=== PATIENT | female | born 1975 | race Two or more races ===

== ENCOUNTER 2023-02-18 21:57 | Emergency (ER) | payer OTHER ==
[~2023-02-18] VITALS: Ht 160 cm; Wt 72.6 kg
[2023-02-18 23:31] VITALS: BP 98/67; TEMP 98.1; O2SAT 98
[2023-02-18] MEDS ORDERED: PERM60CR4 TP (23:35)
== END 2023-02-18 23:44 | disposition home or self-care (01) ==
LOC: ER 21:59
DX: B86 Scabies (principal)

== ENCOUNTER 2023-07-01 07:22 | Inpatient (IN) | payer OTHER ==
[~2023-07-01] VITALS: Ht 154.9 cm; Wt 67.1 kg
[~2023-07-01 07:22] MED LIST: PERM60CR4 TP
[2023-07-01 08:52] LABS: BASOPHILS % (AUTO) 0.3 % (0.0-2.0); EOSINOPHILS # (AUTO) 0.2 K/uL (0.0-0.7); EOSINOPHILS % (AUTO) 3.6 % (0.0-6.0); HEMATOCRIT 25 % (33-45); HEMOGLOBIN 8.2 g/dL (11.5-14.8); LYMPHOCYTES # (AUTO) 2.4 K/uL (0.8-4.8); LYMPHOCYTES % (AUTO) 39.7 % (20.0-44.0); MEAN CORPUSCULAR HEMOGLOBIN 27 PG (26.0-33.0); MEAN CORPUSCULAR HGB CONC 32 g/dl (31.0-36.0); MEAN CORPUSCULAR VOLUME 83 fL (82-100); MONOCYTES # (AUTO) 0.3 K/uL (0.1-1.30); MONOCYTES % (AUTO) 4.6 % (2.0-12.0); NEUTROPHILS # (AUTO) 3.1 K/uL (1.8-8.9); NEUTROPHILS % (AUTO) 51.8 % (43.0-81.0); PLATELET COUNT (AUTO) 534 K/uL (150-450); RED BLOOD CELL COUNT(AUTO) 3.03 MIL/uL (4.0-5.2); RED CELL DISTRIBUTION WIDTH 15.8 % (11.5-15.0)
[2023-07-01 08:59] LABS: CALCIUM, SERUM 8.4 mg/dL (8.5-10.1); CARBON DIOXIDE 23 mmol/L (21-32); CHLORIDE 104 mmol/L (98-107); CREATININE 0.8 mg/dL (0.6-1.3); GLUCOSE 95 mg/dL (74-106); POTASSIUM 3.4 mmol/L (3.5-5.1); SODIUM SERUM 137 mmol/L (136-145); UREA NITROGEN, BLOOD 19 mg/dL (7-18)
[2023-07-01 09:05] LABS: ALANINE AMINOTRANSFERASE 24 U/L (12-78); ALBUMIN 3.5 g/dL (3.4-5.0); ALKALINE PHOSPHATASE 108 U/L (46-116); ASPARTATE AMINOTRANSFERASE 13 U/L (15-37); BILIRUBIN,DIRECT 0.1 mg/dL (0.0-0.2); BILIRUBIN,TOTAL 0.2 mg/dL (0.2-1.0); TOTAL PROTEIN, SERUM 7.8 g/dL (6.4-8.2)
[2023-07-01] MEDS ORDERED: SENN-261 PO (09:37)
[2023-07-01] MEDS ORDERED: ACET-2605 PO (09:37)
[2023-07-01] MEDS ORDERED: FERR325T24 PO (09:37)
[2023-07-01] MEDS ORDERED: LEVO88TA5 PO (09:37)
[2023-07-01] MEDS ORDERED: [UNRECOGNIZED DRUG - CODE] PO (09:37)
[2023-07-01] MEDS ORDERED: [UNRECOGNIZED DRUG - CODE] PO (09:37)
[2023-07-01 10:42] LABS: PREGNANCY TEST URINE QUAL NEGATIVE (NEGATIVE)
[2023-07-01] MEDS ORDERED: SENNOSIDES 8.6 MG TABLET PO PRN (12:00)
[2023-07-01] MEDS ORDERED: Z GUARD REMEDY 4 OZ OINT TP PRN (12:00)
[2023-07-01] MEDS ORDERED: MAG HYDROX/AL HYDROX/SIMETH 30 ML UDC PO PRN (12:00)
[2023-07-01] MEDS ORDERED: ONDANSETRON HCL/PF 4 MG/2 ML VIAL IVP PRN (12:00)
[2023-07-01] MEDS ORDERED: MAGNESIUM HYDROXIDE 30 ML UDC PO PRN (12:00)
[2023-07-01] MEDS ORDERED: ZOLPIDEM TARTRATE 5 MG TABLET PO PRN (12:00)
[2023-07-01] MEDS ORDERED: FERROUS SULFATE (325 MG) 325 MG/TAB TABLET ONE (17:00)
[2023-07-01] MEDS: FERROUS SULFATE (325 MG) 325 MG/TAB TABLET PO SCH (17:00)
[2023-07-01 18:42] LABS: HEMOGLOBIN 7.6 g/dL (11.5-14.8)
[2023-07-01 20:00] VITALS: BP 93/69; TEMP 98.7; O2SAT 99
[2023-07-01] MEDS: IV NS 0.9% 1,000 ML IV PRN (20:12)
[2023-07-01] MEDS ORDERED: NORETHINDRONE 0.35 MG PO SCH (21:00)
[2023-07-02] MEDS: NORETHINDRONE 0.35 MG PO SCH ×5 (00:14→23:22)
[2023-07-02] MEDS: IV NS 0.9% 1,000 ML IV PRN ×2 (06:30→16:31)
[2023-07-02 06:51] LABS: BASOPHILS % (AUTO) 0.3 % (0.0-2.0); EOSINOPHILS # (AUTO) 0.1 K/uL (0.0-0.7); EOSINOPHILS % (AUTO) 3.4 % (0.0-6.0); HEMATOCRIT 24 % (33-45); HEMOGLOBIN 7.6 g/dL (11.5-14.8); LYMPHOCYTES # (AUTO) 1.9 K/uL (0.8-4.8); LYMPHOCYTES % (AUTO) 44.1 % (20.0-44.0); MEAN CORPUSCULAR HEMOGLOBIN 27 PG (26.0-33.0); MEAN CORPUSCULAR HGB CONC 32 g/dl (31.0-36.0); MEAN CORPUSCULAR VOLUME 85 fL (82-100); MONOCYTES # (AUTO) 0.2 K/uL (0.1-1.30); MONOCYTES % (AUTO) 5.4 % (2.0-12.0); NEUTROPHILS % (AUTO) 46.8 % (43.0-81.0); PLATELET COUNT (AUTO) 465 K/uL (150-450); RED BLOOD CELL COUNT(AUTO) 2.82 MIL/uL (4.0-5.2); RED CELL DISTRIBUTION WIDTH 15.7 % (11.5-15.0); WHITE BLOOD COUNT (AUTO) 4.3 K/uL (4.3-11.0)
[2023-07-02] MEDS: ACETAMINOPHEN 325 MG TABLET PO PRN (07:43)
[2023-07-02] MEDS: LEVOTHYROXINE SODIUM 88 MCG TABLET PO SCH (07:44)
[2023-07-02 08:00] VITALS: BP 99/73; TEMP 98.6; O2SAT 100
[2023-07-02 08:02] LABS: CALCIUM, SERUM 7.9 mg/dL (8.5-10.1); CREATININE 0.5 mg/dL (0.6-1.3); MAGNESIUM 2.3 mg/dL (1.8-2.4); PHOSPHORUS 3.2 mg/dL (2.5-4.9); POTASSIUM 3.5 mmol/L (3.5-5.1)
[2023-07-02] MEDS: CYANOCOBALAMIN 500 MCG TABLET PO SCH (08:39)
[2023-07-02] MEDS: FERROUS SULFATE (325 MG) 325 MG/TAB TABLET PO SCH ×2 (08:40→17:36)
[2023-07-02 16:00] VITALS: BP 94/65; TEMP 99.3; O2SAT 98
[2023-07-02 18:06] LABS: HEMOGLOBIN 7.5 g/dL (11.5-14.8)
[2023-07-02 20:00] VITALS: BP 96/68; TEMP 99.1; O2SAT 99
[2023-07-03] MEDS: IV NS 0.9% 1,000 ML IV PRN ×2 (03:30→20:48)
[2023-07-03] MEDS: NORETHINDRONE 0.35 MG PO SCH ×4 (05:20→23:40)
[2023-07-03] MEDS: LEVOTHYROXINE SODIUM 88 MCG TABLET PO SCH (06:36)
[2023-07-03 06:50] LABS: BASOPHILS # (AUTO) 0.1 K/uL (0.0-0.2); BASOPHILS % (AUTO) 1.5 % (0.0-2.0); EOSINOPHILS # (AUTO) 0.2 K/uL (0.0-0.7); EOSINOPHILS % (AUTO) 3.8 % (0.0-6.0); HEMATOCRIT 23 % (33-45); HEMOGLOBIN 7.3 g/dL (11.5-14.8); LYMPHOCYTES # (AUTO) 2.5 K/uL (0.8-4.8); LYMPHOCYTES % (AUTO) 43.5 % (20.0-44.0); MEAN CORPUSCULAR HEMOGLOBIN 27 PG (26.0-33.0); MEAN CORPUSCULAR HGB CONC 32 g/dl (31.0-36.0); MEAN CORPUSCULAR VOLUME 84 fL (82-100); MONOCYTES # (AUTO) 0.3 K/uL (0.1-1.30); MONOCYTES % (AUTO) 5.4 % (2.0-12.0); NEUTROPHILS # (AUTO) 2.7 K/uL (1.8-8.9); NEUTROPHILS % (AUTO) 45.8 % (43.0-81.0); PLATELET COUNT (AUTO) 471 K/uL (150-450); RED BLOOD CELL COUNT(AUTO) 2.72 MIL/uL (4.0-5.2); RED CELL DISTRIBUTION WIDTH 15.3 % (11.5-15.0); WHITE BLOOD COUNT (AUTO) 5.8 K/uL (4.3-11.0)
[2023-07-03 06:51] LABS: CALCIUM, SERUM 7.9 mg/dL (8.5-10.1); CREATININE 0.5 mg/dL (0.6-1.3); POTASSIUM 3.6 mmol/L (3.5-5.1)
[2023-07-03] MEDS: FERROUS SULFATE (325 MG) 325 MG/TAB TABLET PO SCH (08:06)
[2023-07-03] MEDS: CYANOCOBALAMIN 500 MCG TABLET PO SCH (08:06)
[2023-07-03 08:30] VITALS: BP 92/65; TEMP 98.5; O2SAT 99
[2023-07-03] MEDS ORDERED: Folic acid 1 MG in IV D5W 50 ML IV SCH (10:00)
[2023-07-03 10:10] LABS: IRON, SERUM 58 ug/dl (50-175); TOTAL IRON BINDING CAPACITY 357 ug/dl (250-450)
[2023-07-03] MEDS: SOD FERRIC GLUC 125 MG in IV NS 0.9% 100 ML IV SCH (17:02)
[2023-07-03 18:08] VITALS: BP 97/69; TEMP 98.5; O2SAT 100
[2023-07-03 20:00] VITALS: BP 101/72; TEMP 99.3; O2SAT 99
[2023-07-03] MEDS: ACETAMINOPHEN 325 MG TABLET PO PRN (20:44)
[2023-07-03 23:30] VITALS: BP 95/62; TEMP 98.2
[2023-07-03 23:45] VITALS: BP 89/60; TEMP 98.6
[2023-07-04] VITALS (8 sets, daily range): BP systolic 88–103; BP diastolic 56–71; TEMP 97.7–98.8; O2SAT 99–100
[2023-07-04] MEDS: NORETHINDRONE 0.35 MG PO SCH ×2 (05:27→12:00)
[2023-07-04] MEDS: LEVOTHYROXINE SODIUM 88 MCG TABLET PO SCH (06:31)
[2023-07-04 07:12] LABS: BASOPHILS % (AUTO) 0.5 % (0.0-2.0); EOSINOPHILS # (AUTO) 0.2 K/uL (0.0-0.7); EOSINOPHILS % (AUTO) 3.4 % (0.0-6.0); HEMATOCRIT 27 % (33-45); HEMOGLOBIN 8.8 g/dL (11.5-14.8); LYMPHOCYTES # (AUTO) 2.6 K/uL (0.8-4.8); LYMPHOCYTES % (AUTO) 42.1 % (20.0-44.0); MEAN CORPUSCULAR HEMOGLOBIN 27 PG (26.0-33.0); MEAN CORPUSCULAR HGB CONC 32 g/dl (31.0-36.0); MEAN CORPUSCULAR VOLUME 82 fL (82-100); MONOCYTES # (AUTO) 0.4 K/uL (0.1-1.30); MONOCYTES % (AUTO) 6.1 % (2.0-12.0); NEUTROPHILS # (AUTO) 2.9 K/uL (1.8-8.9); NEUTROPHILS % (AUTO) 47.9 % (43.0-81.0); PLATELET COUNT (AUTO) 481 K/uL (150-450); RED BLOOD CELL COUNT(AUTO) 3.31 MIL/uL (4.0-5.2); RED CELL DISTRIBUTION WIDTH 16.3 % (11.5-15.0); WHITE BLOOD COUNT (AUTO) 6.1 K/uL (4.3-11.0)
[2023-07-04] MEDS: CYANOCOBALAMIN 500 MCG TABLET PO SCH (08:27)
[2023-07-04] MEDS ORDERED: FOLIC ACID 1 MG TABLET PO SCH (09:00)
[2023-07-04] MEDS ORDERED: NORE0.3536 PO (12:39)
[2023-07-04] MEDS ORDERED: Folic Acid PO (13:10)
[2023-07-04] MEDS ORDERED: [UNRECOGNIZED DRUG - CODE] PO (13:10)
[2023-07-04] MEDS ORDERED: NORETHINDRONE PO (13:10)
[2023-07-04] MEDS: SOD FERRIC GLUC 125 MG in IV NS 0.9% 100 ML IV SCH (13:31)
== END 2023-07-04 15:15 | disposition home or self-care (01) | DRG 532 ==
LOC: ER 07:45 → MED 17:12
PROVIDERS: ADMIT Nurse Practitioner Acute Care; ATTEND Nurse Practitioner Acute Care
PROC: 30233N1 Transfusion of Nonautologous Red Blood Cells into Peripheral Vein, Percutaneous Approach (ICD-10-PCS; principal; 2023-07-03)
DX: D25.1 Intramural leiomyoma of uterus (principal); E83.51 Hypocalcemia; E03.9 Hypothyroidism, unspecified; E87.6 Hypokalemia; D75.839 Thrombocytosis, unspecified; E66.9 Obesity, unspecified; R55 Syncope and collapse; R79.89 Other specified abnormal findings of blood chemistry; Z68.28 Body mass index [BMI] 28.0-28.9, adult; D50.0 Iron deficiency anemia secondary to blood loss (chronic); N93.9 Abnormal uterine and vaginal bleeding, unspecified
CPT/HCPCS: 36415; 70450-TC; 71045-TC; 76856-TC; 80048-TC; 80076-TC; 83540-TC; 83735-TC; 84100-TC; 84484-TC; 84703-TC; 85025-TC; 85027-TC; 86850; 86850-TC; 86870; 86880; 86885; 86900; 86901; 86905; 86906; 86970; 86971; A4223; G0378; J2916; J3490; J7030; J7060; P9016